=== PATIENT | female | born 1965 | race Caucasian/White ===

== ENCOUNTER → 2019-12-20 | Outpatient (CLI) | payer BC ==
[2019-12-20 19:13] LABS: Hemoglobin A1C 8.6 % (4.0-6.0)
[2019-12-21 00:21] LABS: African American GFR (CKD) 115.5 (60.0-200.0); Albumin 4.4 g/dL (3.80-4.90); Albumin/Globulin Ratio 1.76 (1.60-3.17); Anion Gap 14.4 mmol/L (4.00-12.00); BUN/Creat Ratio 12.86 Ratio (12.00-20.00); Calcium 9.4 mg/dL (8.7-10.3); Carbon Dioxide 20.6 mmol/L (21.6-31.8); Chol/HDL Ratio 3.63; Globulin 2.5 g/dL (1.6-3.3); LDL Cholesterol,Calculated 62.4 mg/dL (0.0-131.0); Non-African American GFR(CKD) 99.6 (60.0-200.0); Potassium 4.4 mmol/L (3.5-5.5); Total Bilirubin 0.5 mg/dL (0.2-1.2); Total Protein 6.9 g/dL (6.2-8.2); VLDL Calculation 42.6 mg/dL (5.00-40.00)
== END | disposition home or self-care (01) ==
LOC: LABWHC1 09:40
DX: Z03.89 Encounter for observation for other suspected diseases and conditions ruled out (principal); Z13.220 Encounter for screening for lipoid disorders; Z13.89 Encounter for screening for other disorder
CPT/HCPCS: 36415; 80053; 80061; 83036